=== PATIENT | male | born 2000 | race African-American/Black ===

== ENCOUNTER 2022-02-26 02:36 | Emergency (ER) | payer BC, SELFPAY ==
[2022-02-26] VITALS (32 sets, daily range): BP systolic 96–120; BP diastolic 36–66; PULSE 77–105; RESP 6–25; O2SAT 97–100
--- NOTE | ~2022-02-26 | CT_ITS ---
EXAMINATION: CT facial & cervical spine wo DATE: 02/26/2022 04:13 INDICATION: Face injury. Neck pain. TECHNIQUE: Computed tomography (CT) of the maxillofacial region and cervical spine was performed with out intravenous contrast. Automated exposure control and iterative reconstruction technique were empl oyed. The dose-length product was 468.77 mGy-cm. COMPARISON: None FINDINGS: MAXILLOFACIAL CT: There is mucosal thickening in the paranasal sinuses including near complete opacification of the lef t ethmoid and sphenoid sinuses. There is a fracture of the nasal spine with involvement of the socket s of the maxillary central incisors and right lateral incisor. There is fracture of the maxillary rig ht central incisor. The right maxilla, there are 3 small tooth-like structures with carious lesions a nd periapical lucencies. There is a nonaggressive lytic lesion in the anterior mandible, likely benig n. CERVICAL SPINE CT: There is kyphosis of cervical spine. Vertebral body heights and intervertebral disc heights are miguel l. At C7-T1, there is mild bilateral facet joint osteoarthritis. No neural foraminal stenosis or cent ral canal stenosis. IMPRESSION: 1. Fracture of the anterior maxilla involving the sockets of teeth 7, 8, and 9. Fracture of tooth 8. Reviewed, dictated and finalized at location A.
--- NOTE | ~2022-02-26 | CT_ITS ---
EXAMINATION: CT brain wo con DATE: 02/26/2022 04:13 INDICATION: Head injury. TECHNIQUE: Computed tomography (CT) of the head was performed without intravenous contrast. The mA wa s adjusted according to patient size. Iterative reconstruction technique was employed. The dose-lengt h product was 605.33 mGy-cm. COMPARISON: None FINDINGS: There is no intracranial hemorrhage, acute infarction, or abnormal intracranial mass lesion . The ventricles are normal in size. There is mucosal thickening in the paranasal sinuses. The mastoi d air cells are normal. IMPRESSION: 1. Normal brain. Reviewed, dictated and finalized at location A. IMPRESSION: 1. Normal brain.
[2022-02-26] MEDS: SODIUM CHLORIDE 0.9% IV 1,000 ML 999 ML IV CONT (02:55)
[2022-02-26] MEDS: ONDANSETRON INJ 4 MG/2 ML VIAL IV PUSH (02:56)
[2022-02-26] MEDS: TETANUS,DIPHTHERIA,AC PERTUSSIS ADULT (0.5 ML) BOOSTRIX IM (02:57)
--- NOTE | 2022-02-26 02:58 | ED.GENADULT ---
HPI - General Adult General Chief complaint: Fall Stated complaint: FALL Time Seen by Provider: 02/26/22 02:44 History of Present Illness HPI narrative: Patient 21-year-old gentleman who presents the emergency department with chief complaint of head injury. The patient reports he was drinking this evening and decided to jump over a fence as he jumped over the fence he lost his balance and struck his face on the concrete the patient had no loss of consciousness reports that he cause damage to his 2 front teeth and reports that he had a fair amount of bleeding in his mouth. Related Data Allergies Allergy/AdvReac Type Severity Reaction Status Date / Time Penicillins Allergy Unknown Verified 02/26/22 02:45 Review of Systems Review of Systems: A 10 system review of systems was completed on the patient and is negative except for what is stated in the HPI. Nursing and ancillary documentation was reviewed. Exam Narrative: GENERAL: Well-appearing, well-nourished, and in no acute distress. HEAD: Normocephalic, there is an abrasion present on the upper lip and the lower lip and chin. There is a dental fracture of the upper front EYES: PERRLA and EOMI. ENT: Nares clear, no rhinorrhea or epistaxis. Mucous membranes moist. Tooth #8 is impacted and fractured tooth #9 is fractured NECK: Supple. CHEST: Clear to auscultation. No respiratory distress. HEART: Regular rate and rhythm. No murmur heard. Normal peripheral pulses. ABDOMEN: Soft, nontender, nondistended, normal active bowel sounds. EXTREMITIES: Normal range of motion. No edema. SKIN: Warm, dry, no rash. NEURO: No focal deficits. Alert and oriented x3. PSYCH: Normal mood and affect. Course Vital Signs Vital signs: Vital Signs Pulse Rate 105 H 02/26/22 02:47 Respiratory Rate 02/26/22 02:47 Pulse Rate 79 02/26/22 05:45 Respiratory Rate 02/26/22 05:45 Blood Pressure 110/48 L 02/26/22 05:31 Pulse Oximetry 100 02/26/22 05:45 Medical Decision Making Vital Signs Vital Signs: Vital Signs Pulse Rate 105 H 02/26/22 02:47 Respiratory Rate 02/26/22 02:47 Pulse Rate 79 02/26/22 05:45 Respiratory Rate 02/26/22 05:45 Blood Pressure 110/48 L 02/26/22 05:31 Pulse Oximetry 100 02/26/22 05:45 Discharge Plan Discharge Clinical Impression: Head injury, Fracture of tooth, Abrasion of face, Facial fracture Patient Disposition: Home, Self-Care Condition: Stable Instructions: Antibiotic Form, Facial Fracture (ED), Head Injury (ED), Acute Dental Trauma (ED), Abrasion (ED) Additional Instructions: The CT of your facial bones showed a possible nondisplaced fracture of your maxilla. This should not require any repair but we would like you to follow-up either with plastics or your primary care provider please follow-up with your dentist as soon as possible for the dental fractures Prescriptions: New cephalexin 500 mg capsule 500 mg PO Q6H 7 Days Qty: 28 0RF Follow-up/Referrals: PHYSICIAN NOT ON STAFF,NONSTAFF [Primary Care Provider] - Alexandr Etienne MD [Physician] - Time of Disposition: 06:00
--- NOTE | 2022-02-26 03:05 | PC.NURSE ---
Per Dr. Darden, okay to not apply c-collar at this time. Pt able to move all extremities at this time. Shorts appear wet as of incontinence. Dr. Sumner made aware of incontinence.
--- NOTE | 2022-02-26 06:51 | PC.NURSE ---
Nurse instructed friend on d/c instructions and she verbalized understanding. This nurse attempted to rouse pt awake and was able to get response but pt is still disoriented x 3. Pt responds to his name but will not answer appropriate to birthday question. PT states that he is at [place] when asked where he is. Friend confirmed that that name was the name of a building at school . Dr. Sumner made aware and received orders to hold on d/c and continue to monitor pt until he angelina up.
--- NOTE | 2022-02-26 07:17 | PC.NURSE ---
Report given to DENAE Carter at this time.
== END 2022-02-26 10:20 | disposition home or self-care (01) ==
PROVIDERS: Emergency Provider Emergency Medicine
DX: S09.90XA Unspecified injury of head, initial encounter (principal); S02.5XXA Fracture of tooth (traumatic), initial encounter for closed fracture; S02.40CA Maxillary fracture, right side, initial encounter for closed fracture; S02.2XXA Fracture of nasal bones, initial encounter for closed fracture; S00.81XA Abrasion of other part of head, initial encounter; W18.39XA Other fall on same level, initial encounter; Z23 Encounter for immunization
CPT/HCPCS: 70450; 70486; 72125; 90471; 90715; 96361; 96374; 99284; J2405; J7030

== ENCOUNTER 2023-06-15 16:59 | Emergency (ER) | payer BC, SELFPAY ==
--- NOTE | 2023-06-15 17:07 | ED.URI ---
HPI - URI/Sore Throat General Chief Complaint: Upper Respiratory Infection Stated Complaint: FEVER/SORE THROAT/DIARRHEA Time Seen by Provider: 06/15/23 17:05 Source: patient Mode of arrival: ambulatory Limitations: no limitations History of Present Illness HPI Narrative: Arturo is a 22-year-old male patient presenting to the clinic today with complaints of fever, cough, sore throat, nausea, vomiting, and diarrhea. Reports symptoms just started around 1-2 o'clock this morning. MD elicited complaint: fever, cough, sore throat, rhinorrhea, nasal congestion and other (Nausea, vomiting, and diarrhea) Related Data Allergies Allergy/AdvReac Type Severity Reaction Status Date / Time Penicillins Allergy Unknown Verified 06/15/23 17:08 Review of Systems Review of Systems: Pertinent positives per HPI. Patient denies any rash, headache, visual changes, dizziness, shortness of breath, chest pain, palpitations,constipation, abdominal pain, or any urinary issues. PMFSH Comments At the time of my signature, I reviewed and agree with the nursing past medical, surgical, social, and family history. There is no relevant family history pertinent to the patient complaint. Exam Narrative: General: Well-developed, well nourished, in no apparent distress Head: Normocephalic, atraumatic Eyes: Pupils equally round and reactive to light bilaterally, EOM intact, sclera and conjunctive clear, no discharge, lids normal Ears: TMs intact and clear, ear canals clear, no drainage, grossly hearing normal. Nose: Nares patent, clear nasal discharge, no inflammation, no sinus tenderness. Mouth: Oral pharynx red without lesions or masses, good dentition, MMM. Neck: Supple, trachea midline, no enlargement of anterior or posterior cervical nodes, no thyroid masses or goiter palpable. Cardio: Regular rate and rhythm, s1 and s2 normal, no murmur appreciated. Resp: Clear to auscultation bilaterally, no rhonchi, rales, wheezing or rubs Abdomen: Soft, pliable, bowel sounds present all 4 quadrants, nontender palpation, no organomegaly, no CVAT tenderness Course Course Emergency Course: Portions of this record may have been created with voice recognition software. Level of Care: Express Care Visit Vital Signs Vital signs: Vital signs reviewed MDM - URI/Sore Throat MDM Narrative Medical decision making narrative: At the time of visit patient is resting comfortably on the exam table. Patient appears to be nontoxic. COVID, influenza, and strep test were all performed in the clinic today. COVID and strep were negative influenza was positive for influenza A. Supportive measures were discussed with the patient and they voiced understanding discharge instructions and agrees to treatment plan. Return precautions reviewed Differential Diagnosis Differential diagnosis: Likely upper respiratory infection, otitis media, sinusitis, viral infection, bronchitis, influenza, pharyngitis and other (COVID) Discharge Plan Discharge Clinical Impression: Influenza A Patient Disposition: Home, Self-Care Condition: Stable Instructions: Antibiotic Form, Influenza (ED) Additional Instructions: COVID and strep test was negative. We will send strep for culture and this comes back positive we will contact you and place you on antibiotics at that time Take prescription medications only as prescribed-Tamiflu and zofran for nausea May take DayQuil/NyQuil for cold/flu symptoms Increase fluids and stay well hydrated Tylenol/motrin for pain/fever Flonase and OTC antihistamines as directed Vicks vapor rub to open sinuses Sinus rinses for congestion Cepacol spray, cough drops, throat lozenges, warm tea with honey/lemon, gargle salt water to soothe throat BRAT diet for diarrhea Clear liquids x 24 hours then advance as tolerated for nausea/vomiting Go to the ED if you develop a worsening in your condition- high fever not controlled by Tylenol or Mot
[2023-06-15 17:09] VITALS: BP 129/99; PULSE 120; RESP 16; TEMP 38.8; O2SAT 99
== END 2023-06-15 17:35 | disposition home or self-care (01) ==
PROVIDERS: Emergency Provider Nurse Practitioner Family
DX: J10.1 Influenza due to other identified influenza virus with other respiratory manifestations (principal); Z20.822 Contact with and (suspected) exposure to COVID-19
CPT/HCPCS: 87081; 87804; 87880; 99213; G0463